=== PATIENT | male | born 1945 | race Caucasian/White ===

== ENCOUNTER → 2019-10-26 | Outpatient (CLI) | payer MEDICARE, OTHER ==
[2019-10-20 11:00] VITALS: BP 178/95
[~2019-10-26] MED LIST: AMLO10TA8 PO; ASPI-612 PO; CONTRAST GIVEN. MC PRN; HYDR12.58 PO; IOHEXOL 300 MG/ML 100ML VIAL. IV ONE; LEVO750T5 PO; LOSA100T14 PO; METO-239 PO; OMEP20TA8 PO
--- NOTE | 2019-10-26 08:52 | RAD ---
EXAM: CT Chest with IV contrast INDICATION: Abnormal chest x-ray. Right pleural effusion. Patient presented with cough and was on therapy for pneumonia. TECHNIQUE: Multi-detector row CT images were acquired from the thoracic inlet through the upper abdomen with the use of IV contrast. Sagittal and coronal images were acquired from the transaxial data. All CT scans performed at this facility utilize dose optimization techniques as appropriate to the exam, including the following: Automated exposure control and adjustment of the mA and/or KV according to patient size (this includes techniques or standardized protocols for targeted exams where dose is indication/reason for exam). IV CONTRAST: Administered COMPARISON: Chest x-ray October 17, 2019 FINDINGS: CARDIOVASCULAR: Unremarkable MEDIASTINUM & STEVE: Mild likely reactive mediastinal adenopathy with the largest lymph node measuring 11 mm in the right lower paratracheal pedro station. LUNGS: Masslike rounded opacity in the right lower lobe is present in the configuration typical of rounded atelectasis. Similar smaller finding is present in the periphery of the right middle lobe. Left lung is clear. PLEURAL SPACE: Large right pleural effusion, occupying approximately 50 percent of the pleural space. Ventriculopleural shunt catheter tubing is reidentified coursing down the anterolateral right chest entered the pleural space between the sixth and seventh ribs. The tip abuts the suprahepatic IVC. No pneumothorax. No left-sided pleural effusion or pneumothorax. OSSEOUS & SOFT TISSUE: Unremarkable ABDOMEN: The visualized portions of the upper abdomen are unremarkable. IMPRESSION: Ventriculopleural shunt tubing in the right chest, associated with a large pleural effusion occupying approximately 50 percent of the pleural space and likely resulting in rounded atelectasis involving the right lower lobe and right middle lobe as described. Electronically signed by: García Segal MD (10/26/2019 8:48 AM) [id number]
== END | disposition home or self-care (01) ==
LOC: CT 08:38
PROVIDERS: ATTEND Family Medicine
DX: J90 Pleural effusion, not elsewhere classified (principal); Z98.2 Presence of cerebrospinal fluid drainage device
CPT/HCPCS: 71260; Q9967